=== PATIENT | male | born 1945 | race Caucasian/White ===

== ENCOUNTER 2023-11-03 12:21 | Day surgery (SDC) | payer MEDICARE, OTHER, SELFPAY ==
[2023-11-03 13:06] VITALS: BP 150/68; PULSE 53; RESP 16; TEMP 37; O2SAT 99
[2023-11-03] MEDS: LACTATED RINGERS 1,000 ML 42 ML IV (13:13)
--- NOTE | 2023-11-03 13:47 | P.HP_ITS ---
History of Present Illness History of Present Illness Date Patient Seen: 11/03/23 Time Patient Seen: 13:47 Chief complaint: [facility] [place]ative: 78-year-old man here for screening colonoscopy. Last colonoscopy 5 years ago, personal history of colonic polyps. No family history of colon cancer. No abdominal concerns today. [facility] Social History Smoking Status: Never smoker Meds Home Medications and Allergies Home Medications Medication Instructions Recorded Confirmed Type aspirin 81 mg chewable tablet 81 mg PO DAILY 02/08/22 11/03/23 History atorvastatin 20 mg tablet 20 mg PO DAILY 02/08/22 11/03/23 History Allergies Allergy/AdvReac Type Severity Reaction Status Date / Time No Known Drug Allergies Allergy Verified 11/03/23 13:00 Exam Vital Signs (past 8 hours): - 11/03/23 13:06 Temperature 98.6 F Pulse Rate 53 L Respiratory Rate 16 Blood Pressure 150/68 H Pulse Oximetry 99 Oxygen Delivery Method Room Air Oxygen Delivery Method Room Air Narrative Exam Narrative: General adult man alert oriented no acute distress Chest nonlabored respiration Extremities warm well perfused Assessment & Plan Assessment & Plan narrative: The patient requires colorectal screening and colonoscopy is recommended. Technical details were discussed. Risks, benefits, alternatives explained. Risks including but not limited to myocardial infarction, aspiration, bleeding, pain, missed lesion, incomplete examination, need for further radiographic studies, intestinal injury, and need for major abdominal surgery were discussed. All questions were answered to their satisfaction, and they are in agreement with this plan. Time-Based Coding :: [TOTAL MINUTES] spent with patient and on the chart (including review of chart, obtaining history, exam, reviewing outside data, placing orders, documenting exam and treatment plan, and counseling patient) on [DATE].
[2023-11-03 14:15] VITALS: BP 100/66; PULSE 54; RESP 13; TEMP 36.1; O2SAT 98
[2023-11-03 14:19] VITALS: BP 100/64; PULSE 54; RESP 15; O2SAT 97
--- NOTE | 2023-11-03 14:19 | P.OP.COLON_ITS ---
Operative Date/Time/Diagnoses Date of procedure: 11/03/23 Time of procedure: 14:19 Pre-op diagnosis: Colorectal screening Procedure & Clinicians Study performed: Screening colonoscopy Same procedure as scheduled: Yes Indications: Colorectal screening Surgeon: Addi Resendez Procedure Notes Procedure in detail: The history and physical was performed/updated and the patient is ASA class is 2. The procedure was discussed in detail with the patient. Potential risks co mplications including infection, bleeding, missed diagnosis, perforation, need for surgery, and were explained. Their questions were answered and informed consent was obtained. Patient was brought to the procedure room and placed standard monitoring equipment. The patient's vital signs were monitored continuously throughout the entire procedure. Prior to starting time-out was performed. The patient was placed in the left lateral recumbent position. Procedural sedation was administered by anesthesia. Examination began with a thorough inspection of the perianal area there was no evidence of fissures, fistulae, external hemorrhoids or cutaneous malignancy. The colonoscopy scope was then placed into the anal canal and was advanced to the cecum, which was identified by the ileocecal valve, the appendiceal orifice and the confluence of the taenia. The scope was then slowly withdrawn examining colon thoroughly in all directions, irrigating it of any residual stool. The scope was retroflexed within the rectum The patient tolerated the procedure well. They will be discharged once criteria are met. The prep was of fair quality. The withdrawl time was 7 minutes. FINDINGS * No masses polyps or inflammation. * Mild diverticulosis of descending colon. Specimen(s): none sent Impression: Normal colonoscopy Post-procedure Recommendations: High fiber diet Plan for aftercare: No need for further colonoscopy unless symptomatic Disposition: same day surgery
[2023-11-03 14:25] VITALS: BP 111/58; PULSE 70; RESP 16; O2SAT 98
[2023-11-03 14:35] VITALS: BP 114/71; PULSE 61; RESP 16; O2SAT 98
== END 2023-11-03 14:40 | disposition home or self-care (01) ==
PROVIDERS: PCP Internal Medicine; Referring Provider Surgery; Visit Provider Surgery
PROC: 0DJD8ZZ Inspection of Lower Intestinal Tract, Via Natural or Artificial Opening Endoscopic (ICD-10-PCS; CPT 45378; principal; 2023-11-03 13:30)
DX: Z12.11 Encounter for screening for malignant neoplasm of colon (principal); Z86.010 Personal history of colon polyps; K57.30 Diverticulosis of large intestine without perforation or abscess without bleeding
CPT/HCPCS: G0105; J2704